=== PATIENT | female | born 1940 | race Caucasian/White ===

== ENCOUNTER 2016-12-15 20:07 | Emergency (ER) | payer OTHER ==
[~2016-12-15] VITALS: Ht 152.4 cm; Wt 61.7 kg
[~2016-12-15 20:07] MED LIST: CIPR500T4 PO; HYDR-3498 PO; LISI-522 PO; METR500T14 PO; ONDA-43 PO; PANT40TA4 PO
[2016-12-15 20:09] VITALS: Ht 152.4 cm; Wt 61.7 kg
[2016-12-15] MEDS ORDERED: HYDR-906 PO (21:45)
[2016-12-15] MEDS ORDERED: KETOROLAC 30 MG INJ IM STA (21:47)
--- NOTE | 2016-12-16 05:25 | ERD ---
ER Documentation Chief Complaint Chief Complaint c/o left arm and shoulder pain x 1 wk. No trauma. Worse with movement. (BEV ROMERO PA-C) HPI 76-year-old female presenting with a chief complaint of shoulder pain without trauma that is worse with movement 1 week. Patient states it hurts to move the shoulder. Denies numbness, tingling, loss of sensation. Taking [place] with only minimal to moderate relief. No similar symptoms in past. States it hurts to sleep on the shoulder. Denies fever, chills. Patient has no other complaints and describes no other associated manifestations. Nursing notes have been reviewed and are consistent with history given. (BEV ROMERO PA-C) ROS All systems reviewed and are negative except as per history of present illness. (BEV ROMERO PA-C) Medications Home Meds Active Scripts Hydrocodone/Acetaminophen ([place] 5-325 Tablet) 1 Each Tablet, 1 TAB PO Q6H Y for PAIN, #7 TAB Prov:BEV ROMERO PA-C 12/15/16 Pantoprazole (Protonix) 40 Mg Tabec, 40 MG PO DAILY, #30 TAB Prov:TYRONE VELOZ MD 03/08/14 Ondansetron Hcl* (Zofran*) 4 Mg Tab, 4 MG PO Q4H Y for NAUSEA AND OR VOMITING, # 30 TAB Prov:TYRONE VELOZ MD 03/08/14 Metronidazole (Flagyl) 500 Mg Tab, 500 MG PO Q8, #30 TAB Prov:TYRONE VELOZ MD 03/08/14 Ciprofloxacin Hcl* (Ciprofloxacin Hcl*) 500 Mg Tablet, 500 MG PO BID, #20 TAB Prov:TYRONE VELOZ MD 03/08/14 Reported Medications Hydrocodone Bit-Acetaminophen* ([place]*) 5-325 Mg Tab, 1 TAB PO Q6 Y for SEVERE PAIN LEVEL 7-10, TAB 03/10/14 Lisinopril/Hydrochlorothiazide (Zestoretic) 20-25 Mg Tab, 1 TAB PO DAILY, TAB 10/17/13 Allergies Allergies: Coded Allergies: Penicillins (Verified Allergy, Mild, RASH, 10/19/13) Sulfa (Sulfonamide Antibiotics) (Verified Allergy, Mild, VOMITING, 10/19/13 ) PMhx/Soc History of Surgery: Yes (Cholecystectomy,Hysterectomy) Anesthesia Reaction: No Hx Neurological Disorder: No Hx Respiratory Disorders: No Hx Cardiac Disorders: Yes (HTN) Hx Psychiatric Problems: No Hx Miscellaneous Medical Probl: Yes (Allergy Rhinitis) Hx Alcohol Use: No Hx Substance Use: No Hx Tobacco Use: No Smoking Status: Never smoker (BEV ROMERO PA-C) Physical Exam Vitals Vital Signs Date Time Temp Pulse Resp B/P Pulse Ox O2 Delivery O2 Flow Rate FiO2 12/15/16 20:09 99.5 115 18 136/69 97 (MO MORA DO) Physical Exam Const: [] Head: Atraumatic Eyes: Normal Conjunctiva ENT: Normal External Ears, Nose and Mouth. Neck: Full range of motion..~ No meningismus. Resp: Clear to auscultation bilaterally Cardio: Regular rate and rhythm, no murmurs Abd: Soft, non tender, non distended. Normal bowel sounds Skin: No petechiae or rashes Back: No midline or flank tenderness Ext: Decreased range of motion in all directions of the left shoulder. No tenderness palpation. Neur: Awake and alert Psych: Normal Mood and Affect (BEV ROMERO PA-C) Results 24 hrs Current Medications Medications (Trade) Dose Ordered Sig/Marvin Route PRN Reason Start Time Stop Time Status Last Admin Dose Admin Ketorolac Tromethamine (Toradol) 30 mg ONCE STAT IM 12/15/16 21:47 12/15/16 21:48 DC 12/15/16 22:04 (MO MORA DO) Procedures/MDM 76-year-old female presenting with a chief complaint of left arm pain without trauma as described in history and physical examination. Most likely diagnosis is rotator cuff syndrome. I have no suspicion for bony pathology, neurovascular compromise, infection, or ACS. I have recommended continuing [place] as well as considering [id number] ibuprofen for discomfort. Ortho- Est has been given for follow-up. I have spoke with the patient regarding their condition and future management. They have verbally responded that they understand their status and treatment plan. The patients vitals are stable, and their current condition is appropriate for discharge. The patient will be given discharge instructions with return precautions. (BEV ROMERO PA-C) I am in agreement with the diagnosis, documentation and care plan of this elderly female and agree with outpatient orthopedic evaluation. (MO MORA DO) Departure Diagnosis: Primary Impression: Pain of left arm Additional Impression: Rotator cuff disorder Laterality: left Qualified Code: M67.912 - Disorder of left rotator cuff Condition: Stable Patient Instructions: Understanding Rotator Cuff Injuries Referrals: [facility] Urgent Care 7 a.m.- 11 p.m. Every Day of the Week NO APPOINTMENT OR AUTHORIZATION NEEDED [facility] Hours: Mon-Fri 9:00 AM - 5:00 PM Additional Instructions: Follow up with ortho within the next 1-3 days for a more thorough evaluation. Return the the emergency department immediately if symptoms worsen or change. If you have any questions regarding medications, ask your pharmacist or us before you leave. If any adverse reactions occur while taking your medications, discontinue the treatment and return to the emergency department immediately. Take your medications as directed, and complete the entire course of treatment. BEV ROMERO PA-C Dec 16, 2016 05:25 MO MORA DO Dec 16, 2016 15:28
--- NOTE | 2016-12-16 05:25 | ERD ---
ER Documentation Chief Complaint Chief Complaint c/o left arm and shoulder pain x 1 wk. No trauma. Worse with movement. (BEV ROMERO PA-C) HPI 76-year-old female presenting with a chief complaint of shoulder pain without trauma that is worse with movement 1 week. Patient states it hurts to move the shoulder. Denies numbness, tingling, loss of sensation. Taking [place] with only minimal to moderate relief. No similar symptoms in past. States it hurts to sleep on the shoulder. Denies fever, chills. Patient has no other complaints and describes no other associated manifestations. Nursing notes have been reviewed and are consistent with history given. (BEV ROMERO PA-C) ROS All systems reviewed and are negative except as per history of present illness. (BEV ROMERO PA-C) Medications Home Meds Active Scripts Hydrocodone/Acetaminophen ([place] 5-325 Tablet) 1 Each Tablet, 1 TAB PO Q6H Y for PAIN, #7 TAB Prov:BEV ROMERO PA-C 12/15/16 Pantoprazole (Protonix) 40 Mg Tabec, 40 MG PO DAILY, #30 TAB Prov:TYRONE VELOZ MD 03/08/14 Ondansetron Hcl* (Zofran*) 4 Mg Tab, 4 MG PO Q4H Y for NAUSEA AND OR VOMITING, # 30 TAB Prov:TYRONE VELOZ MD 03/08/14 Metronidazole (Flagyl) 500 Mg Tab, 500 MG PO Q8, #30 TAB Prov:TYRONE VELOZ MD 03/08/14 Ciprofloxacin Hcl* (Ciprofloxacin Hcl*) 500 Mg Tablet, 500 MG PO BID, #20 TAB Prov:TYRONE VELOZ MD 03/08/14 Reported Medications Hydrocodone Bit-Acetaminophen* ([place]*) 5-325 Mg Tab, 1 TAB PO Q6 Y for SEVERE PAIN LEVEL 7-10, TAB 03/10/14 Lisinopril/Hydrochlorothiazide (Zestoretic) 20-25 Mg Tab, 1 TAB PO DAILY, TAB 10/17/13 Allergies Allergies: Coded Allergies: Penicillins (Verified Allergy, Mild, RASH, 10/19/13) Sulfa (Sulfonamide Antibiotics) (Verified Allergy, Mild, VOMITING, 10/19/13 ) PMhx/Soc History of Surgery: Yes (Cholecystectomy,Hysterectomy) Anesthesia Reaction: No Hx Neurological Disorder: No Hx Respiratory Disorders: No Hx Cardiac Disorders: Yes (HTN) Hx Psychiatric Problems: No Hx Miscellaneous Medical Probl: Yes (Allergy Rhinitis) Hx Alcohol Use: No Hx Substance Use: No Hx Tobacco Use: No Smoking Status: Never smoker (BEV ROMERO PA-C) Physical Exam Vitals Vital Signs Date Time Temp Pulse Resp B/P Pulse Ox O2 Delivery O2 Flow Rate FiO2 12/15/16 20:09 99.5 115 18 136/69 97 (MO MORA DO) Physical Exam Const: [] Head: Atraumatic Eyes: Normal Conjunctiva ENT: Normal External Ears, Nose and Mouth. Neck: Full range of motion..~ No meningismus. Resp: Clear to auscultation bilaterally Cardio: Regular rate and rhythm, no murmurs Abd: Soft, non tender, non distended. Normal bowel sounds Skin: No petechiae or rashes Back: No midline or flank tenderness Ext: Decreased range of motion in all directions of the left shoulder. No tenderness palpation. Neur: Awake and alert Psych: Normal Mood and Affect (BEV ROMERO PA-C) Results 24 hrs Current Medications Medications (Trade) Dose Ordered Sig/Marvin Route PRN Reason Start Time Stop Time Status Last Admin Dose Admin Ketorolac Tromethamine (Toradol) 30 mg ONCE STAT IM 12/15/16 21:47 12/15/16 21:48 DC 12/15/16 22:04 (MO MORA DO) Procedures/MDM 76-year-old female presenting with a chief complaint of left arm pain without trauma as described in history and physical examination. Most likely diagnosis is rotator cuff syndrome. I have no suspicion for bony pathology, neurovascular compromise, infection, or ACS. I have recommended continuing [place] as well as considering [id number] ibuprofen for discomfort. Ortho- Est has been given for follow-up. I have spoke with the patient regarding their condition and future management. They have verbally responded that they understand their status and treatment plan. The patients vitals are stable, and their current condition is appropriate for discharge. The patient will be given discharge instructions with return precautions. (BEV ROMERO PA-C) I am in agreement with the diagnosis, documentation and care plan of this elderly female and agree with outpatient orthopedic evaluation. (MO MORA DO) Departure Diagnosis: Primary Impression: Pain of left arm Additional Impression: Rotator cuff disorder Laterality: left Qualified Code: M67.912 - Disorder of left rotator cuff Condition: Stable Patient Instructions: Understanding Rotator Cuff Injuries Referrals: [facility] 7 a.m.- 11 p.m. Every Day of the Week NO APPOINTMENT OR AUTHORIZATION NEEDED [facility] Hours: Mon-Fri 9:00 AM - 5:00 PM Additional Instructions: Follow up with ortho within the next 1-3 days for a more thorough evaluation. Return the the emergency department immediately if symptoms worsen or change. If you have any questions regarding medications, ask your pharmacist or us before you leave. If any adverse reactions occur while taking your medications, discontinue the treatment and return to the emergency department immediately. Take your medications as directed, and complete the entire course of treatment. BEV ROMERO PA-C Dec 16, 2016 05:25 MO MORA DO Dec 16, 2016 15:28
--- NOTE | 2016-12-16 05:25 | ERD ---
ER Documentation Chief Complaint Chief Complaint c/o left arm and shoulder pain x 1 wk. No trauma. Worse with movement. (BEV ROMERO PA-C) HPI 76-year-old female presenting with a chief complaint of shoulder pain without trauma that is worse with movement 1 week. Patient states it hurts to move the shoulder. Denies numbness, tingling, loss of sensation. Taking [place] with only minimal to moderate relief. No similar symptoms in past. States it hurts to sleep on the shoulder. Denies fever, chills. Patient has no other complaints and describes no other associated manifestations. Nursing notes have been reviewed and are consistent with history given. (BEV ROMERO PA-C) ROS All systems reviewed and are negative except as per history of present illness. (BEV ROMERO PA-C) Medications Home Meds Active Scripts Hydrocodone/Acetaminophen ([place] 5-325 Tablet) 1 Each Tablet, 1 TAB PO Q6H Y for PAIN, #7 TAB Prov:BEV ROMERO PA-C 12/15/16 Pantoprazole (Protonix) 40 Mg Tabec, 40 MG PO DAILY, #30 TAB Prov:TYRONE VELOZ MD 03/08/14 Ondansetron Hcl* (Zofran*) 4 Mg Tab, 4 MG PO Q4H Y for NAUSEA AND OR VOMITING, # 30 TAB Prov:TYRONE VELOZ MD 03/08/14 Metronidazole (Flagyl) 500 Mg Tab, 500 MG PO Q8, #30 TAB Prov:TYRONE VELOZ MD 03/08/14 Ciprofloxacin Hcl* (Ciprofloxacin Hcl*) 500 Mg Tablet, 500 MG PO BID, #20 TAB Prov:TYRONE VELOZ MD 03/08/14 Reported Medications Hydrocodone Bit-Acetaminophen* ([place]*) 5-325 Mg Tab, 1 TAB PO Q6 Y for SEVERE PAIN LEVEL 7-10, TAB 03/10/14 Lisinopril/Hydrochlorothiazide (Zestoretic) 20-25 Mg Tab, 1 TAB PO DAILY, TAB 10/17/13 Allergies Allergies: Coded Allergies: Penicillins (Verified Allergy, Mild, RASH, 10/19/13) Sulfa (Sulfonamide Antibiotics) (Verified Allergy, Mild, VOMITING, 10/19/13 ) PMhx/Soc History of Surgery: Yes (Cholecystectomy,Hysterectomy) Anesthesia Reaction: No Hx Neurological Disorder: No Hx Respiratory Disorders: No Hx Cardiac Disorders: Yes (HTN) Hx Psychiatric Problems: No Hx Miscellaneous Medical Probl: Yes (Allergy Rhinitis) Hx Alcohol Use: No Hx Substance Use: No Hx Tobacco Use: No Smoking Status: Never smoker (BEV ROMERO PA-C) Physical Exam Vitals Vital Signs Date Time Temp Pulse Resp B/P Pulse Ox O2 Delivery O2 Flow Rate FiO2 12/15/16 20:09 99.5 115 18 136/69 97 (MO MORA DO) Physical Exam Const: [] Head: Atraumatic Eyes: Normal Conjunctiva ENT: Normal External Ears, Nose and Mouth. Neck: Full range of motion..~ No meningismus. Resp: Clear to auscultation bilaterally Cardio: Regular rate and rhythm, no murmurs Abd: Soft, non tender, non distended. Normal bowel sounds Skin: No petechiae or rashes Back: No midline or flank tenderness Ext: Decreased range of motion in all directions of the left shoulder. No tenderness palpation. Neur: Awake and alert Psych: Normal Mood and Affect (BEV ROMERO PA-C) Results 24 hrs Current Medications Medications (Trade) Dose Ordered Sig/Marvin Route PRN Reason Start Time Stop Time Status Last Admin Dose Admin Ketorolac Tromethamine (Toradol) 30 mg ONCE STAT IM 12/15/16 21:47 12/15/16 21:48 DC 12/15/16 22:04 (MO MORA DO) Procedures/MDM 76-year-old female presenting with a chief complaint of left arm pain without trauma as described in history and physical examination. Most likely diagnosis is rotator cuff syndrome. I have no suspicion for bony pathology, neurovascular compromise, infection, or ACS. I have recommended continuing [place] as well as considering [id number] ibuprofen for discomfort. Ortho- Est has been given for follow-up. I have spoke with the patient regarding their condition and future management. They have verbally responded that they understand their status and treatment plan. The patients vitals are stable, and their current condition is appropriate for discharge. The patient will be given discharge instructions with return precautions. (BEV ROMERO PA-C) I am in agreement with the diagnosis, documentation and care plan of this elderly female and agree with outpatient orthopedic evaluation. (MO MORA DO) Departure Diagnosis: Primary Impression: Pain of left arm Additional Impression: Rotator cuff disorder Laterality: left Qualified Code: M67.912 - Disorder of left rotator cuff Condition: Stable Patient Instructions: Understanding Rotator Cuff Injuries Referrals: [facility] Urgent Care 7 a.m.- 11 p.m. Every Day of the Week NO APPOINTMENT OR AUTHORIZATION NEEDED [facility] Hours: Mon-Fri 9:00 AM - 5:00 PM Additional Instructions: Follow up with ortho within the next 1-3 days for a more thorough evaluation. Return the the emergency department immediately if symptoms worsen or change. If you have any questions regarding medications, ask your pharmacist or us before you leave. If any adverse reactions occur while taking your medications, discontinue the treatment and return to the emergency department immediately. Take your medications as directed, and complete the entire course of treatment. BEV ROMERO PA-C Dec 16, 2016 05:25 MO MORA DO Dec 16, 2016 15:28
== END 2016-12-15 22:22 | disposition home or self-care (01) ==
LOC: FTE 20:07
DX: M67.912 Unspecified disorder of synovium and tendon, left shoulder (principal); I10 Essential (primary) hypertension
CPT/HCPCS: 96372; 99284; J1885